=== PATIENT | male | born 1985 | race Asian ===

== ENCOUNTER → 2024-11-05 | Outpatient (CLI) | payer BC, OTHER, SELFPAY ==
--- NOTE | 2024-11-05 17:01 | XR_ITS ---
Examination: PA lateral chest 2 views Technique: Upright PA lateral chest 2 views Exam date and time: November 05, 2024 1733 hrs. Comparison November 17, 2021 Indications: Coughing wheezing beginning 2 days ago. Findings: Consolidation in the posterior segment left upper lobe Normal heart size Right lung clear Osseous structures are intact Impression: Pneumonia posterior segment left upper lobe, differential would include active tuberculosis
== END | disposition home or self-care (01) ==
LOC: CDIM 16:56
PROVIDERS: Referring Provider Nurse Practitioner Family; Visit Provider Nurse Practitioner Family
DX: J18.9 Pneumonia, unspecified organism (principal)
CPT/HCPCS: 71046

== ENCOUNTER → 2024-11-06 | Outpatient (CLI) | payer BC, OTHER, SELFPAY ==
[2024-11-06 08:00] LABS: Coccid Serology, CF (UCD)* See Sep Rpt; Misc Send Out* See Sep Rpt; Quantiferon-TB* See Sep Rpt
== END | disposition home or self-care (01) ==
LOC: COPL 07:41
PROVIDERS: PCP Family Medicine; Referring Provider Nurse Practitioner Family; Visit Provider Nurse Practitioner Family
DX: J20.9 Acute bronchitis, unspecified (principal); Z87.09 Personal history of other diseases of the respiratory system
CPT/HCPCS: 86171; 86480; 86738

== ENCOUNTER → 2024-11-13 | Outpatient (CLI) | payer BC, OTHER, SELFPAY ==
[2024-11-13 07:00] LABS: Misc Send Out* See Sep Rpt
[2024-11-13 08:58] LABS: Glucose Estimated Average 117 mg/dL (80-131); Hemoglobin A1C 5.7 % Hgb (4.8-6.0)
[2024-11-13 09:08] LABS: Basophils # (Auto) 0.1 Thou/mm3 (0.0-0.2); Basophils % (Auto) 1 % (0-2.5); Eosinophils # (Auto) 0.1 Thou/mm3 (0.0-0.5); Eosinophils % (Auto) 2 % (0-10); Hematocrit 43.7 % (41.0-53.0); Hemoglobin 15.2 g/dL (13.5-16.0); Immature Granulocytes % (Auto) 7 % (0-0); Immature Granulocytes Auto 0.46 Thou/mm3 (0.00-0.00); Lymphocytes # (Auto) 2.3 Thou/mm3 (1.0-4.8); Lymphocytes % (Auto) 36 % (10-50); Mean Corpuscular HGB Conc 34.8 g/dl (31.0-37.0); Mean Corpuscular Hemoglobin 31.2 pg (25.0-35.0); Mean Corpuscular Volume 90 fL (80-100); Monocytes # (Auto) 0.6 Thou/mm3 (0.0-0.8); Monocytes % (Auto) 9 % (0-12); Neutrophils # (Auto) 2.8 Thou/mm3 (1.8-7.7); Neutrophils % (Auto) 44 % (37-80); Nucleated Red Blood Cell % 0 /100 WBC (0); Platelet Count 482 Thou/mm3 (140-440); RDW Standard Deviation 39.9 fL (35.1-43.9); Red Blood Count 4.87 Miln/mm3 (4.50-5.90); White Blood Count 6.4 Thou/mm3 (3.8-10.6)
[2024-11-13 09:25] LABS: Vitamin D 25 Hydroxy Total 24.1 ng/mL (7.3-40.2)
[2024-11-13 09:28] LABS: Alanine Aminotransferase 77 U/L (10-49); Albumin, Serum 4.8 gm/dL (3.5-5.0); Albumin/Globulin Ratio 1.7 (1.2-2.2); Alkaline Phosphatase 72 U/L (46-116); Anion Gap 9 (7-16); Aspartate Amino Transferase 24 U/L (0-34); BUN/Creatinine Ratio 14 Ratio (12-20); Bilirubin,Total 0.6 mg/dL (0.3-1.2); Blood Urea Nitrogen 15 mg/dL (9-23); Calcium 10.1 mg/dL (8.3-10.6); Calcium (Corrected) 10.1 mg/dL (8.5-10.1); Carbon Dioxide 29.3 mMol/L (20.0-31.0); Cardiac Risk Estimate 5.4 RATIO (4.0-6.7); Chloride 103 mMol/L (98-107); Cholesterol 205 mg/dL (132-200); Creatinine (Component) 1.1 mg/dL (0.6-1.3); Globulin 2.9 gm/dL (2.3-3.5); Glucose 93 mg/dL (74-106); HDL Cholesterol 38 mg/dL (40-60); LDL Cholesterol,Calculated 98 mg/dL (0-130); Osmolality,Calculated 282 (275-295); Potassium 4.7 mMol/L (3.4-5.1); Sodium 141 mMol/L (136-145); Thyroid Stimulating Hormone 0.91 uIU/mL (0.55-4.78); Total Protein 7.7 gm/dL (5.7-8.2); Triglycerides 346 mg/dL (30-150); eGFR > 60 See Note
[2024-11-13 09:48] LABS: Ferritin 599 ng/mL (10.5-307.3); Total Iron Binding Capacity 369 mcg/dL (250-425)
[2024-11-13 09:59] LABS: Iron 154 mcg/dL (65-175); Percent Iron Saturation 41 % (20-55); Unsaturated Iron Binding 215 (225-295)
[2024-11-23 06:37] LABS: Homocysteine* 12.3 umol/L (<11.4); Methylmalonic Acid, GC/MS/MS* 116 nmol/L (55-335); Testosterone, Free,Dialysis 121.8 pg/mL (35.0-155.0); Testosterone, Total, Dialysis 423 ng/dL (250-1100); Thyroid Peroxidase Antibodies* 1 IU/mL (<9)
== END | disposition home or self-care (01) ==
LOC: COPL 06:43
PROVIDERS: PCP Family Medicine; Referring Provider Nurse Practitioner Family; Visit Provider Nurse Practitioner Family
DX: D64.9 Anemia, unspecified (principal); R53.83 Other fatigue; M79.10 Myalgia, unspecified site; E55.9 Vitamin D deficiency, unspecified; E29.1 Testicular hypofunction
CPT/HCPCS: 36415; 80053; 80061; 82306; 82728; 83036; 83090; 83540; 83550; 83921; 84402; 84403; 84436; 84443; 84466; 85025; 86376

== ENCOUNTER → 2024-11-16 | Outpatient (CLI) | payer BC, OTHER, SELFPAY ==
--- NOTE | 2024-11-16 | XR_ITS ---
Examination: Lumbar spine, 5 views Technique: Lumbar spine AP, lateral, coned lateral lower lumbar spine, bilateral obliques 5 views Exam date and time: November 16, 2024 at 0713 hours INDICATIONS: Lower back pain beginning 8 months ago. FINDINGS: Adequate bone density. Satisfactory alignment lumbar vertebral bodies. No lumbar fracture Mild diffuse lumbar disc during No spondylolisthesis IMPRESSION: Mild diffuse lumbar disc narrowing
--- NOTE | 2024-11-16 07:20 | XR_ITS ---
Examination: PA lateral chest 2 views TECHNIQUE: Upright PA and lateral chest 2 views Presented time: November 16, 2024 at 0713 hours Comparison November 05, 2024 INDICATIONS: Chest on November 05, 2024 significant pneumonia left upper lobe FINDINGS: Pneumonia left upper lobe has cleared No current pneumonia Normal heart size IMPRESSION: Pneumonia left upper lobe has cleared
== END | disposition home or self-care (01) ==
PROVIDERS: PCP Family Medicine; Referring Provider Nurse Practitioner Family; Visit Provider Nurse Practitioner Family
DX: J18.9 Pneumonia, unspecified organism (principal); M48.061 Spinal stenosis, lumbar region without neurogenic claudication
CPT/HCPCS: 71046; 72110

== ENCOUNTER → 2025-04-26 | Outpatient (CLI) | payer BC, OTHER, SELFPAY ==
[2025-04-26 11:33] LABS: Misc Send Out* See Sep Rpt
[2025-04-26 13:29] LABS: Cardiac Risk Estimate 4.6 RATIO (4.0-6.7); Cholesterol 213 mg/dL (132-200); HDL Cholesterol 46 mg/dL (40-60); LDL Cholesterol,Calculated 122 mg/dL (0-130); Triglycerides 223 mg/dL (30-150)
[2025-04-26 13:33] LABS: Glucose Estimated Average 105 mg/dL (80-131); Hemoglobin A1C 5.3 % Hgb (4.8-6.0)
== END | disposition home or self-care (01) ==
PROVIDERS: PCP Family Medicine; Referring Provider Nurse Practitioner Family; Visit Provider Nurse Practitioner Family
DX: E78.1 Pure hyperglyceridemia (principal); R73.03 Prediabetes
CPT/HCPCS: 36415; 80061; 83036